=== PATIENT | female | born 1970 | race American Indian/Alaskan Native ===

== ENCOUNTER 2017-06-29 21:07 | Emergency (ER) | payer BC ==
[2017-06-29 21:16] VITALS: BP 140/97; PULSE 75; RESP 16; O2SAT 100
--- NOTE | 2017-06-29 21:41 | ED PDOC ---
Arrival/HPI - General Chief Complaint: Upper Extremity Problem/Injury Time Seen by Provider: 06/29/17 21:23 Historian: Patient - History of Present Illness Narrative History of Present Illness (Text): 06/29/17 21:27 A 47 year old female, with no significant past medical history, presents to the emergency department complaining of right shoulder pain for 2 days. Patient describes pain as aching and sore, and worsens with movement. Patient states also experiencing some soreness to hands. Patient denies any numbness/weakness, neck pain, back pain, any injuries, or any other complaints. Denies any trauma. PMD: Dr. Connelly Time/Duration: < week (2 days) Symptom Onset: Sudden Symptom Course: Unchanged Quality: Aching, Other (sore) Past Medical History - Provider Review Nursing Documentation Reviewed: Yes - Infectious Disease Hx of Infectious Diseases: None - Psychiatric Hx Substance Use: No Family/Social History - Physician Review Nursing Documentation Reviewed: Yes Family/Social History: No Known Family HX Smoking Status: Light Smoker < 10 Cigarettes Daily Hx Alcohol Use: Yes Frequency of alcohol use: Socially Hx Substance Use: No Allergies/Home Meds Allergies/Adverse Reactions: Allergies No Known Allergies Allergy (Verified 06/29/17 21:20) Review of Systems - Physician Review All systems were reviewed & negative as marked: Yes - Review of Systems Musculoskeletal: Other (right shoulder pain, worsens with movement). absent: Back Pain, Neck Pain Neurological: absent: Other (no numbness/weakness) Physical Exam Vital Signs Reviewed: Yes Vital Signs Temp Pulse Resp BP Pulse Ox 06/29/17 21:42 98.2 F 06/29/17 21:16 75 16 140/97 H 100 Temperature: Afebrile Blood Pressure: Normal Pulse: Regular Respiratory Rate: Normal Appearance: Positive for: Well-Appearing Pain Distress: None Mental Status: Positive for: Alert and Oriented X 3 - Systems Exam Upper Extremity: Present: Normal ROM (decreased ROM to right shoulder, full ROM to right elbow and wrist), Tenderness (right shoulder, worsens with movement). No: Swelling Medical Decision Making ED Course and Treatment: 06/29/17 21:30 Impression: 47 year old female with right shoulder pain. Physical exam shows tenderness to right shoulder worsening with movement, decreased ROM to right shoulder, full ROM to right elbow and wrist, no swelling. Differential Diagnosis included but are not limited to: Tendinitis vs. Rotator Cuff Injury Plan: -- Right Shoulder X-Ray -- Flexeril -- Toradol -- Reassess and disposition Progress Notes: 06/29/17 22:35 Reviewed radiology, XR Right Shoulder negative for acute fracture/processes. 06/29/17 22:40 On re-evaluation, patient feels better and is in no acute distress. I have discussed the results and plan with the patient, who expresses understanding. Patient in agreement with plan to be discharged home. Patient is stable for discharge. Patient was instructed to follow up with physician/orthopedist/ clinic or return if symptoms worsen or new concerning symptoms arise. - RAD Interpretation Radiology Orders: 06/29/17 21:29 SHOULDER RIGHT [RAD] Stat Representative Government Relations: Radiologist - Medication Orders Current Medication Orders: Discontinued Medications Cyclobenzaprine HCl (Flexeril) 10 mg PO STAT STA Stop: 06/29/17 21:31 Last Admin: 06/29/17 21:52 Dose: 10 mg Ketorolac Tromethamine (Toradol) 60 mg IM STAT STA Stop: 06/29/17 21:31 Last Admin: 06/29/17 21:52 Dose: 60 mg MAR Pain Assessment Document 06/29/17 21:52 OCS (Rec: 06/29/17 21:52 OCS [facility] [id number]) Pain Reassessment Is this a pain reassessment? Yes Sleep Is patient sleeping during reassessment? No Presence of Pain Presence of Pain Yes Pain Scale Used Pain Scale Used Numeric IM Administration Charges Document 06/29/17 21:52 OCS (Rec: 06/29/17 21:52 OCS [facility] [id number]) Charges for Administration # of IM Administrations 1 - Scribe Statement The provider has reviewed the documentation as recorded by the Jeanine Simpson Provider Scribe Attestation: All medical record entries made by the Walteribbrittany were at my direction and personally dictated by me. I have reviewed the chart and agree that the record accurately reflects my personal performance of the history, physical exam, medical decision making, and the department course for this patient. I have also personally directed, reviewed, and agree with the discharge instructions and disposition. Disposition/Present on Arrival - Present on Arrival Any Indicators Present on Arrival: No History of DVT/PE: No History of Uncontrolled Diabetes: No Urinary Catheter: No History of Decub. Ulcer: No History Surgical Site Infection Following: None - Disposition Have Diagnosis and Disposition been Completed?: Yes Diagnosis: Right shoulder strain Disposition: HOME/ ROUTINE Disposition Time: 22:40 Patient Plan: Discharge Condition: IMPROVED Discharge Instructions (ExitCare): Muscle Strain Additional Instructions: Ms Wilkes, thank you for letting us take care of you today. Your provider was Dr. Handley You were treated for Shoulder Strain. The emergency medical care you received today was directed at your acute symptoms. If you were prescribed any medication, please fill it and take as directed. It may take several days for your symptoms to resolve. Return to the Emergency Department if your symptoms worsen, do not improve, or if you have any other problems. Please contact your doctor or call one of the physicians/clinics you have been referred to that are listed on the Patient Visit Information form that is included in your discharge packet. Bring any paperwork you were given at discharge with you along with any medications you are taking to your follow up visit. Our treatment cannot replace ongoing medical care by a primary care provider (PCP) outside of the emergency department. Thank you for allowing the [facility] team to be part of your care today. If you had an X-Ray or CT scan: A Radiologist will review the ED reading if any change in treatment is needed we will contact you. If you had a blood, urine, or wound culture: It will take several days for the results, if any change in treatment is needed we will contact you. If you had an STI test: It will take 48 hours for the results. Please call after 1 week if you have not heard back. Prescriptions: Cyclobenzaprine HCl 5 mg PO Q8 PRN #15 tablet PRN Reason: Muscle Spasm Ibuprofen [Motrin] 600 mg PO Q6 PRN #30 tab PRN Reason: Pain, Moderate (4-7) Referrals: Rubens Connelly MD [Family Provider] - Follow up with primary Forms: [employer] ([place]o), WORK NOTE
[2017-06-29 21:43] VITALS: TEMP 98.2
--- NOTE | 2017-06-30 08:27 | RAD ---
PROCEDURE: Radiographs of the Right Shoulder HISTORY: pain r/o fx COMPARISON: No prior. FINDINGS: BONES: Normal. No fracture. JOINTS: Normal. Glenohumeral and acromioclavicular joints preserved. No osteoarthritis. SOFT TISSUES: There is a 13 mm soft tissue calcification adjacent to the greater tuberosity consistent with calcific tendonitis OTHER FINDINGS: None. IMPRESSION: Calcific tendinitis or bursitis
== END 2017-06-29 21:30 | disposition home or self-care (01) ==
LOC: ED 21:07
DX: S46.911A Strain of unspecified muscle, fascia and tendon at shoulder and upper arm level, right arm, initial encounter (principal); X58.XXXA Exposure to other specified factors, initial encounter; F17.210 Nicotine dependence, cigarettes, uncomplicated
CPT/HCPCS: 73030; 96372; 99283; J1885

== ENCOUNTER 2017-10-10 19:08 | Emergency (ER) | payer BC ==
[2017-10-10 19:14] VITALS: BMI 30.6
[2017-10-10 19:21] VITALS: RESP 18; TEMP 98.6; O2SAT 99
[2017-10-10 20:39] LABS: HEMOGLOBIN 13.2 g/dL (12.0-16.0); MEAN CELL VOLUME 76.1 fl (80.0-105.0); MEAN CORPUSCULAR HEMOGLOBIN 25.4 pg (25.0-35.0); MEAN CORPUSCULAR HGB CONC 33.4 g/dl (31.0-37.0); MEAN PLATELET VOLUME 10.6 fl (7.0-11.0); RBC 5.19 10^6/uL (3.5-6.1); RED CELL DISTRIBUTION WIDTH 14.6 % (11.5-14.5); WHITE BLOOD COUNT 9.6 10^3/ul (4.5-11.0)
[2017-10-10 20:46] LABS: ALB/GLOB RATIO 1.3 (1.1-1.8); ALBUMIN 4.1 g/dL (3.0-4.8); ALT/SGPT 21 U/L (7-56); AST/SGOT 19 U/L (14-36); BLOOD UREA NITROGEN 15 mg/dL (7-21); CALCIUM 9.1 mg/dL (8.4-10.5); D DIMER < 200 ng/mL (0-243); GFR AFRICAN-AMERICAN > 60; GFR NON-AFRICAN AMERICAN > 60; INR 0.94 (0.93-1.08); PARTIAL THROMBOPLASTIN TIME 32.3 Seconds (25.1-36.5); PROTHROMBIN TIME 10.7 SECONDS (9.4-12.5)
[2017-10-10 20:57] LABS: TROPONIN I < 0.01 ng/mL
--- NOTE | 2017-10-10 21:16 | ED PDOC ---
Arrival/HPI - General Chief Complaint: Chest Pain Time Seen by Provider: 10/10/17 19:15 Historian: Patient - History of Present Illness Narrative History of Present Illness (Text): 10/10/17 19:13 47 year old female, with no significant past medical history, presents to the emergency department complaining of discomfort to the right posterior back area radiating to the right chest. Symptoms are increased with movement and change in position. She denies any drug use. Patient denies any trauma, fever, chills, cough, shortness of breath, abdominal pain, nausea, vomiting, diarrhea, neck pain, headache, dizziness, or any other complaints. PMD: Dr. Olivia Connelly Symptom Onset: Gradual Symptom Course: Unchanged Activities at Onset: Light Context: Home Past Medical History - Provider Review Nursing Documentation Reviewed: Yes - Infectious Disease Hx of Infectious Diseases: None - Psychiatric Hx Substance Use: No Family/Social History - Physician Review Nursing Documentation Reviewed: Yes Family/Social History: No Known Family HX Smoking Status: Light Smoker < 10 Cigarettes Daily Hx Alcohol Use: Yes Hx Substance Use: No Allergies/Home Meds Allergies/Adverse Reactions: Allergies No Known Allergies Allergy (Verified 06/29/17 21:20) Review of Systems - Physician Review All systems were reviewed & negative as marked: Yes - Review of Systems Constitutional: absent: Fevers, Other (Chills) Respiratory: absent: SOB Cardiovascular: Chest Pain (right chest discomfort ) Gastrointestinal: absent: Abdominal Pain, Diarrhea, Nausea, Vomiting Musculoskeletal: Back Pain (right posterior back area). absent: Neck Pain Neurological: absent: Headache, Dizziness Physical Exam Vital Signs Reviewed: Yes Vital Signs Temp Pulse Resp BP Pulse Ox 10/10/17 19:19 98.6 F 66 18 114/70 99 Temperature: Afebrile Blood Pressure: Normal Pulse: Regular Respiratory Rate: Normal Appearance: Positive for: Well-Appearing, Non-Toxic, Comfortable Pain Distress: None Mental Status: Positive for: Alert and Oriented X 3 - Systems Exam Head: Present: Atraumatic, Normocephalic Pupils: Present: PERRL Extroacular Muscles: Present: EOMI Conjunctiva: Present: Normal Mouth: Present: Moist Mucous Membranes Neck: Present: Normal Range of Motion Respiratory/Chest: Present: Clear to Auscultation, Good Air Exchange. No: Respiratory Distress, Accessory Muscle Use Cardiovascular: Present: Regular Rate and Rhythm, Normal S1, S2. No: Murmurs Abdomen: No: Tenderness, Distention, Peritoneal Signs Back: Present: Normal Inspection. No: CVA Tenderness Upper Extremity: Present: Normal Inspection. No: Cyanosis, Edema Lower Extremity: Present: Normal Inspection. No: Edema Neurological: Present: GCS=15, CN II-XII Intact, Speech Normal Skin: Present: Warm, Dry, Normal Color. No: Rashes Psychiatric: Present: Alert, Oriented x 3, Normal Insight, Normal Concentration Medical Decision Making ED Course and Treatment: 10/10/17 19:17 Impression: 47 year old female presents complaining of discomfort to the right posterior back area radiating to the right chest, worsening with movement. Plan: -- EKG -- Labs -- Chest X-Ray -- Toradol -- Reassess and disposition Prior Visits: Notes and results from previous visits were reviewed. On 06/29/17 patient came in complaining of right shoulder pain for 2 days. Patient was discharged. Progress Notes: EKG shows NSR at 65 BPM with non-specific ST/T changes. Interpreted by me. 10/10/17 20:33 CXR Impression: As read by me, no acute process. 10/10/17 22:54 On reevaluation the patient feels better and is in no acute distress. I have discussed the results and plan with the patient, who expresses understanding. Patient given the opportunity to ask question, all questions were answered and there is agreement with the plan to discharge the patient. Patient is stable for discharge. Patient was instructed to follow up with physician/clinic in 1-2 days or return if symptoms persist/worsen or new concerning symptoms arise. - Lab Interpretations Lab Results: 10/10/17 20:27 10/10/17 20:27 Lab Results 10/10/17 20:27: WBC 9.6, RBC 5.19, Hgb 13.2, Hct 39.5, MCV 76.1 L, MCH 25.4, MCHC 33.4, RDW 14.6 H, Plt Count 225, MPV 10.6 10/10/17 20:27: PT 10.7, INR 0.94, APTT 32.3, D-Dimer, Quantitative < 200 10/10/17 20:27: Sodium 142, Potassium 4.2, Chloride 107, Carbon Dioxide 27, Anion Gap 12, BUN 15, Creatinine 0.8, Est GFR ( Amer) > 60, Est GFR (Non- Af Amer) > 60, Random Glucose 94, Calcium 9.1, Total Bilirubin 0.2, AST 19, ALT 21, Alkaline Phosphatase 51, Lactate Dehydrogenase 592, Total Creatine Kinase 122, Troponin I < 0.01, Total Protein 7.3, Albumin 4.1, Globulin 3.1, Albumin/ Globulin Ratio 1.3 I have reviewed the lab results: Yes - RAD Interpretation Radiology Orders: 10/10/17 19:52 CHEST PORTABLE [RAD] Stat - EKG Interpretation Interpreted by ED Physician: Yes Type: 12 lead EKG - Medication Orders Current Medication Orders: Discontinued Medications Ketorolac Tromethamine (Toradol) 30 mg IVP ONCE ONE Stop: 10/10/17 19:54 Last Admin: 10/10/17 20:23 Dose: 30 mg MAR Pain Assessment Document 10/10/17 20:23 RAÚL (Rec: 10/10/17 20:24 RAÚL [id number]) Pain Reassessment Is this a pain reassessment? No IVP Administration Document 10/10/17 20:23 RAÚL (Rec: 10/10/17 20:24 [id number] [id number]) Charges for Administration # of IVP Administrations 1 - Scribe Statement The provider has reviewed the documentation as recorded by the Jeanine Trevino Provider Scribe Attestation: All medical record entries made by the Walteribbrittany were at my direction and personally dictated by me. I have reviewed the chart and agree that the record accurately reflects my personal performance of the history, physical exam, medical decision making, and the department course for this patient. I have also personally directed, reviewed, and agree with the discharge instructions and disposition. Disposition/Present on Arrival - Present on Arrival Any Indicators Present on Arrival: No History of DVT/PE: No History of Uncontrolled Diabetes: No Urinary Catheter: No History of Decub. Ulcer: No History Surgical Site Infection Following: None - Disposition Have Diagnosis and Disposition been Completed?: Yes Diagnosis: Musculoskeletal pain Disposition: HOME/ ROUTINE Disposition Time: 22:50 Patient Plan: Discharge Patient Problems: Current Active Problems Problem Status Onset Musculoskeletal pain Acute Condition: GOOD Discharge Instructions (ExitCare): Muscle and Bone Pain (DC) Additional Instructions: Rest/no strenuous physical activity/take meds as prescribed/follow up with your doctor this week Prescriptions: Cyclobenzaprine [Cyclobenzaprine HCl] 10 mg PO TID PRN #15 tab PRN Reason: Muscle Spasm Naproxen [Naprosyn] 500 mg PO BID PRN #14 tab PRN Reason: Pain Referrals: Rubens Connelly MD [Primary Care Provider] - Follow up with primary Forms: [employer] (I[place]ic)
[2017-10-10 23:07] VITALS: BP 124/82; PULSE 78
--- NOTE | 2017-10-11 07:47 | RAD ---
HISTORY: pain COMPARISON: No prior. FINDINGS: LUNGS: No active pulmonary disease. PLEURA: No significant pleural effusion identified, no pneumothorax apparent. CARDIOVASCULAR: Normal. OSSEOUS STRUCTURES: No significant abnormalities. VISUALIZED UPPER ABDOMEN: Normal. OTHER FINDINGS: None. IMPRESSION: No active disease.
--- NOTE | 2017-10-11 10:49 | CARD ---
APPROVED REPORT EKG Measurement Heart [id number] <Conclusion> Normal sinus rhythm RVCD Normal ECG
== END 2017-10-10 23:07 | disposition home or self-care (01) ==
LOC: ED 19:08
DX: M79.1 Myalgia (principal)
CPT/HCPCS: 71045; 80053; 82550; 83615; 84484; 85027; 85378; 85610; 85730; 93005; 96374; 99283; J1885

== ENCOUNTER 2018-07-03 08:24 | Emergency (ER) | payer BC | END 2018-07-03 11:00 | disposition home or self-care (01) | LOC: ED 08:24 ==